=== PATIENT | male | born 1980 | race African-American/Black ===

== ENCOUNTER 2022-04-28 21:23 | Emergency (ER) | payer OTHER ==
[~2022-04-28] VITALS: Ht 182.9 cm; Wt 150.1 kg
[2022-04-28] MEDS ORDERED: ERYTHROMYCIN (OPTH) 3.5 GM OINT OP ONE ×2 (23:15→23:37)
[2022-04-28] MEDS ORDERED: TOBREX5 ML OP (23:17)
[2022-04-28] MEDS ORDERED: KETOROLAC TROMET5 ML OS (23:17)
[2022-04-28] MEDS ORDERED: TOBREX5 ML OS (23:18)
== END 2022-04-28 23:40 | disposition home or self-care (01) ==
LOC: FSED 21:34
DX: H57.12 Ocular pain, left eye (principal); S05.02XA Injury of conjunctiva and corneal abrasion without foreign body, left eye, initial encounter; X58.XXXA Exposure to other specified factors, initial encounter; Y92.89 Other specified places as the place of occurrence of the external cause